=== PATIENT | female | born 1995 | race Caucasian/White ===

== ENCOUNTER 2020-02-12 13:15 | Emergency (ER) | payer MEDICAID ==
[~2020-02-12] VITALS: Ht 162.6 cm; Wt 139.8 kg
[2020-02-12 13:32] VITALS: BP 130/64
[2020-02-12] MEDS ORDERED: COROTSUS LEFT EAR (14:53)
[2020-02-12] MEDS ORDERED: AMOX-422 PO (14:53)
== END 2020-02-12 15:46 | disposition home or self-care (01) ==
LOC: ER 13:16
DX: H66.93 Otitis media, unspecified, bilateral (principal); H60.93 Unspecified otitis externa, bilateral; Z79.899 Other long term (current) drug therapy
CPT/HCPCS: 99283

== ENCOUNTER 2020-06-15 13:41 | Emergency (ER) | payer MEDICAID ==
[~2020-06-15 13:41] MED LIST: COROTSUS LEFT EAR
[2020-06-15 13:50] VITALS: BP 135/88
[2020-06-15] MEDS ORDERED: PENI250T2 PO (14:39)
== END 2020-06-15 14:49 | disposition home or self-care (01) ==
LOC: ER 13:44
DX: K04.7 Periapical abscess without sinus (principal); R59.0 Localized enlarged lymph nodes; Z86.19 Personal history of other infectious and parasitic diseases; Z91.048 Other nonmedicinal substance allergy status; Z79.2 Long term (current) use of antibiotics
CPT/HCPCS: 99283

== ENCOUNTER → 2020-09-19 | Emergency (ER) | payer MEDICAID ==
[~2020-09-19] VITALS: Ht 165.1 cm; Wt 148.2 kg
[2020-09-19 15:31] VITALS: BP 115/69
--- NOTE | 2020-09-19 16:30 | NUR ---
ASSIST PA WITH PELVIC EXAM, NO TAMPON NOTED
== END | disposition home or self-care (01) ==
LOC: ER 19:14
DX: T19.2XXA Foreign body in vulva and vagina, initial encounter (principal); X58.XXXA Exposure to other specified factors, initial encounter; Y93.89 Activity, other specified; Y92.89 Other specified places as the place of occurrence of the external cause; Y99.8 Other external cause status
CPT/HCPCS: 99284